=== PATIENT | male | born 1985 | race Caucasian/White ===

== ENCOUNTER 2020-02-29 18:39 | Emergency (ER) | payer MEDICARE, MEDICAID ==
[~2020-02-29] VITALS: Ht 185.4 cm; Wt 81.8 kg
[2020-02-29] MEDS ORDERED: acetaminophen 325mg tablet PO ONE (19:00)
[2020-02-29] MEDS ORDERED: ALBU8.5H8 INH (20:33)
[2020-02-29] MEDS ORDERED: ROBCFL PO (20:33)
[2020-02-29] MEDS ORDERED: BENZ-16 PO (20:33)
--- NOTE | 2020-02-29 20:35 | NUR ---
WHEN DISCHARGED PLEASE CALL #[phone] [facility]
[2020-02-29 20:47] VITALS: BP 119/65
== END 2020-02-29 20:50 | disposition home or self-care (01) ==
LOC: ER 18:40
DX: R05 Cough (principal); R50.9 Fever, unspecified; R51 Headache; Z20.828 Contact with and (suspected) exposure to other viral communicable diseases; Z79.899 Other long term (current) drug therapy
CPT/HCPCS: 36415; 87635; 99282; 99283